=== PATIENT | female | born 1960 | race Caucasian/White ===

== ENCOUNTER 2018-11-18 20:28 | Emergency (ER) | payer SELFPAY ==
[2018-11-18 20:56] LABS: HEMATOCRIT 37.3 % (36.0-47.0); HEMOGLOBIN 12.4 g/dL (12.0-15.5); RED BLOOD COUNT 4.11 x10^6/uL (3.50-5.40); RED CELL DISTRIBUTION WIDTH 16.4 % (11.5-14.5)
[2018-11-18 21:04] LABS: CALCIUM 9.6 mg/dL (8.5-10.1); CREATININE 1.2 mg/dL (0.6-1.0); GFR 45.8
--- NOTE | 2018-11-18 21:12 | PHYS DOC ---
Adult General Chief Complaint Chief Complaint: ALTERED MENTAL STATUS HPI HPI 58-year-old female presents with concern for stroke. The patient developed weakness on the left side as well as slurred speech yesterday evening. The patient refused to come emergency room. Today, the patient states that she fell in her bedroom and hit the right side of her head. Family was concerned that her condition was getting worse and called EMS. EMS found the patient have slurred speech and weakness on the left side. She is moving all extremities. Patient's last known well time was yesterday evening. The patient is able to answer some questions. Most of her speech is intelligible. She does repeat herself. She complains of pain in the right side of her head. She is unable to tell me if she is feeling ill prior to today. She is unable to tell us about her medical history. Review of Systems Review of Systems Constitutional: Denies fever or chills [] Eyes: Denies change in visual acuity, redness, or eye pain [] HENT: Denies nasal congestion or sore throat [] Respiratory: Denies cough or shortness of breath [] Cardiovascular: No additional information not addressed in HPI [] GI: Denies abdominal pain, nausea, vomiting, bloody stools or diarrhea [] : Denies dysuria or hematuria [] Musculoskeletal: Denies back pain or joint pain [] Integument: Denies rash or skin lesions [] Neurologic: headache, new weakness. [] Endocrine: Denies polyuria or polydipsia [] All other systems were reviewed and found to be within normal limits, except as documented in this note. Physical Exam Physical Exam Constitutional: Well developed, well nourished, no acute distress, non-toxic appearance. [] HENT: Normocephalic, atraumatic, bilateral external ears normal, oropharynx moist, no oral exudates, nose normal. [] Eyes: PERRLA, EOMI, conjunctiva normal, no discharge. [] Neck: Normal range of motion, no tenderness, supple, no stridor. [] Cardiovascular:Heart rate regular rhythm, no murmur [] Lungs & Thorax: Bilateral breath sounds clear to auscultation [] Abdomen: Bowel sounds normal, soft, no tenderness, no masses, no pulsatile masses. [] Skin: Warm, dry, no erythema, no rash. [] Back: Ecchymosis right posterior ribs. [] Extremities: No tenderness, no cyanosis, no clubbing, ROM intact, no edema. [] Neurologic: Alert and oriented to person and time, moves all extemities, see NIH scale for more details [] Psychologic: Anxious [] Current Patient Data Lab Results Laboratory Tests Test 11/18/18 20:37 White Blood Count 7.0 x10^3/uL (4.0-11.0) Red Blood Count 4.11 x10^6/uL (3.50-5.40) Hemoglobin 12.4 g/dL (12.0-15.5) Hematocrit 37.3 % (36.0-47.0) Mean Corpuscular Volume 91 fL (79-100) Mean Corpuscular Hemoglobin 30 pg (25-35) Mean Corpuscular Hemoglobin Concent 33 g/dL (31-37) Red Cell Distribution Width 16.4 % (11.5-14.5) H Platelet Count 340 x10^3/uL (140-400) Sodium Level 143 mmol/L (136-145) Potassium Level 4.0 mmol/L (3.5-5.1) Chloride Level 102 mmol/L (98-107) Carbon Dioxide Level 33 mmol/L (21-32) H Anion Gap 8 (6-14) Blood Urea Nitrogen 8 mg/dL (7-20) Creatinine 1.2 mg/dL (0.6-1.0) H Estimated GFR (Cockcroft-Gault) 45.8 Glucose Level 92 mg/dL (70-99) Calcium Level 9.6 mg/dL (8.5-10.1) EKG EKG Sinus rhythm, rate 82, normal axis, no ST elevation or depression.[] Radiology/Procedures Radiology/Procedures [] Impressions: PQRS Compliance statement: One or more of the following individualized dose reduction techniques were utilized for this examination: 1. Automated exposure control. 2. Adjustment of the mA and/or kV according to patient size. 3. Use of iterative reconstruction technique. Indication:Stroke possible, slurred speech, weakness, altered mental status TECHNIQUE: CT angiogram of the head and neck with IV contrast with multiplanar MIP reformats. 3-D volume rendered postprocessing was performed. Calculation of stenosis was performed using NASCET like criteria. COMPARISON: None FINDINGS: The A1 and A2 segments of the bilateral UNIQUE are patent. The M1, M2, M3 segments of the bilateral MCA are patent. Basilar artery is patent. Bilateral P1, P2, P3 segments of the [employer] are patent. Bilateral superior cerebellar arteries are patent. Right AICA is visualized. Left AICA not visualized likely hypoplastic. Bilateral PICA are visualized and are patent. Bilateral vertebral arteries are patent. Bilateral common carotid arteries are patent. Bilateral ECA and extracranial ICA are patent. Bilateral petrous and cavernous segments of the ICA are patent. Bilateral orbits within normal limits. The major dural venous sinuses are patent. The nasopharynx, oropharynx and hypopharynx within normal limits. The submandibular glands, parotid glands and thyroid are within normal limits. No large deep cervical adenopathy. No suspicious bony lesion. Visualized paranasal sinuses and mastoid air cells are clear. Multilevel degenerative disc disease in the cervical spine. IMPRESSION: The major intracranial and neck arteries are patent. Electronically signed by: Adriel Bo DO (11/18/2018 10:50 PM) [facility] DICTATED AND SIGNED BY: ADRIEL BO DO DATE: 11/18/182241 CC: EULOGIO BHAGAT DO; PCP,UNKNOWN PQRS Compliance statement: One or more of the following individualized dose reduction techniques were utilized for this examination: 1. Automated exposure control. 2. Adjustment of the mA and/or kV according to patient size. 3. Use of iterative reconstruction technique. Indication:Slurred speech, altered mental status, fall TECHNIQUE: CT head without IV contrast COMPARISON:12/13/2010 FINDINGS: No pathologic extra-axial or intra-axial fluid collection. The ventricles and basal cisterns are within normal limits. No acute intracranial bleed. No focal loss of venegas-white differentiation. Orbits are within normal limits. No suspicious calvarial lesion. Visualized paranasal sinuses and mastoid air cells are clear. IMPRESSION: No acute intracranial process. If concern for acute ischemic stroke is high, please consider MRI brain. Critical findings were identified on 11/18/2018 9:03 PM, read back and verified with Dr. Bhagat on 11/18/2018 9:[address] Adriel Bo DO. Indication:Slurred speech, altered menatl status, fall TECHNIQUE: CT of the cervical spine without IV contrast with multiplanar reformats. COMPARISON:None FINDINGS: Motion artifact is seen in the upper cervical spine limiting optimal evaluation. Atlantoaxial joint interval is preserved. No apparent compression deformity. Facet joints are in normal anatomic alignment. Multilevel intervertebral disc space narrowing with endplate sclerosis and osteophyte formation. No apparent acute fractures. Noncontrast appearance of the neck soft tissue is within normal limits. IMPRESSION: Motion artifact limits optimal evaluation. 1. No apparent compression deformity or acute fracture. 2. Multilevel moderate degenerative disc disease associated facet arthropathy. Electronically signed by: Adriel Bo DO (11/18/2018 9:09 PM) [facility] DICTATED AND SIGNED BY: ADRIEL BO DO DATE: 11/18/182102 CC: EULOGIO BHAGAT DO; PCP,UNKNOWN Course & Med Decision Making Course & Med Decision Making Pertinent Labs and Imaging studies reviewed. (See chart for details) The patient has an NIH stroke scale of 8. Patient's head CT is negative. Her labs are unremarkable. Drug screen did show barbiturates. We are unable to obtain medication list for the patient. CT angiogram of the head and neck has been ordered. EKG is unremarkable. The patient's CT of the head and neck shows all major vessels to be patent. See official report for more details. I have discussed the patient with Dr. Coon, neurology at [facility]. She recommended admission to [place] if the CTA was negative otherwise [facility]. The CTA is negative. I discussed the case with Dr. Ortega, hospitalist at [facility] and he has accepted the patient for transfer and admission. Greater than 35 minutes of critical care time was spent on this patient exclusive of other billable procedures. [] Dragon Disclaimer Dragon Disclaimer This electronic medical record was generated, in whole or in part, using a voice recognition dictation system. NIH Stroke Scale: NIH Stroke Scale Response (Comments) Value Level of Consciousness: 0 Alert/Responsive 0 LOC Questions: 0 Answers both correctly 0 LOC Commands: 0 Performs both tasks 0 Best Gaze: 0 Normal 0 Visual: 0 No visual loss 0 Facial Palsy: 0 Normal, symmetrical 0 Motor - Left Arm 1 Drifts, but can hold 1 Motor - Right Arm 1 Drifts but can hold 1 Motor - Left Leg 1 Drift but can hold 1 Motor: Right Leg 1 Drift but can hold 1 Limb Ataxia: 2 Two limbs 2 Sensory: 0 No loss 0 Best Language: 1 Mild to mod aphasia 1 Dysathria: 1 Mild to moderate 1 Extinction and Inattention: 0 Normal 0 Total 8 Departure Departure: Impression: Primary Impression: Stroke Additional Impressions: Fall from standing Altered mental status Headache Disposition: XFER SHT-TRM HOSP Condition: STABLE Problem Qualifiers Primary Impression: Stroke CVA mechanism: unspecified Qualified Codes: I63.9 - Cerebral infarction, unspecified Additional Impressions: Fall from standing Encounter type: initial encounter Qualified Codes: W19.XXXA - Unspecified fall, initial encounter Altered mental status Altered mental status type: disorientation Qualified Codes: R41.0 - Disorientation, unspecified Headache Headache type: unspecified Headache chronicity pattern: acute headache Intractability: intractable Qualified Codes: R51 - Headache EULOGIO BHAGAT DO Nov 18, 2018 21:12
[2018-11-18] MEDS ORDERED: IOHEXOL 350 MG/ML 100 ML VIAL. IV ONE (21:30)
[2018-11-18 21:54] LABS: BACTERIA,URINE 0 /HPF (0-FEW); BILIRUBIN,URINE NEG (NEG); CLARITY,URINE CLEAR; COLOR,URINE YELLOW; GLUCOSE,URINE NEG (NEG); NITRITE,URINE NEG (NEG); RBC,URINE 0 /HPF (0-2); SQUAMOUS EPITHELIAL CELL,UR FEW /LPF; UROBILINOGEN,URINE 0.2 mg/dL (0.2 mg/dL); WBC,URINE 0 /HPF (0-4)
[2018-11-18 21:55] LABS: HYALINE CASTS, URINE FEW /HPF
[2018-11-18 21:57] LABS: AMPHETAMINE/METHAMPHETAMINE NEG (NEG); BARBITURATES POS (NEG); BENZODIAZEPINES NEG (NEG); CANNABINOIDS NEG (NEG); COCAINE NEG (NEG); METHADONE NEG (NEG); OPIATES NEG (NEG); PHENCYCLIDINE NEG (NEG)
--- NOTE | 2018-11-18 22:52 | RAD ---
PQRS Compliance statement: One or more of the following individualized dose reduction techniques were utilized for this examination: 1. Automated exposure control. 2. Adjustment of the mA and/or kV according to patient size. 3. Use of iterative reconstruction technique. Indication:Stroke possible, slurred speech, weakness, altered mental status TECHNIQUE: CT angiogram of the head and neck with IV contrast with multiplanar MIP reformats. 3-D volume rendered postprocessing was performed. Calculation of stenosis was performed using NASCET like criteria. COMPARISON: None FINDINGS: The A1 and A2 segments of the bilateral UNIQUE are patent. The M1, M2, M3 segments of the bilateral MCA are patent. Basilar artery is patent. Bilateral P1, P2, P3 segments of the [employer] DELIV[employer]NAGER are patent. Bilateral superior cerebellar arteries are patent. Right AICA is visualized. Left AICA not visualized likely hypoplastic. Bilateral PICA are visualized and are patent. Bilateral vertebral arteries are patent. Bilateral common carotid arteries are patent. Bilateral ECA and extracranial ICA are patent. Bilateral petrous and cavernous segments of the ICA are patent. Bilateral orbits within normal limits. The major dural venous sinuses are patent. The nasopharynx, oropharynx and hypopharynx within normal limits. The submandibular glands, parotid glands and thyroid are within normal limits. No large deep cervical adenopathy. No suspicious bony lesion. Visualized paranasal sinuses and mastoid air cells are clear. Multilevel degenerative disc disease in the cervical spine. IMPRESSION: The major intracranial and neck arteries are patent. Electronically signed by: Adriel Bo DO (11/18/2018 10:50 PM) [facility]
--- NOTE | 2018-11-18 23:35 | RAD ---
EXAM: AP View of the chest DATE: 11/18/2018 9:35 PM INDICATION: Bruising right posterior ribs, weakness, recent fall COMPARISON: No Prior FINDINGS: The heart is borderline enlarged. Bilateral infrahilar and lung base parenchymal opacities are seen with linear opacities in the midlungs bilaterally. No pleural effusion or pneumothorax. IMPRESSION: Bilateral infrahilar and lung base opacities, possibly atelectasis although early developing consolidation is not excluded. Given the interstitial prominence, early interstitial edema may have similar appearance. Electronically signed by: Roberto Benton MD (11/18/2018 11:32 PM) [facility] [place]
[2018-11-18 23:52] VITALS: BP 159/81
--- NOTE | 2018-11-19 21:40 | EKG ---
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
== END 2018-11-19 00:17 | disposition short-term general hospital (02) ==
LOC: ER 20:28
DX: I63.9 Cerebral infarction, unspecified (principal); R53.1 Weakness; R47.81 Slurred speech; R41.82 Altered mental status, unspecified; R51 Headache; G89.11 Acute pain due to trauma; W18.09XA Striking against other object with subsequent fall, initial encounter; Y93.89 Activity, other specified; Y92.89 Other specified places as the place of occurrence of the external cause; Y99.8 Other external cause status
CPT/HCPCS: 36415; 70450; 70496; 70498; 71045; 72125; 80048; 80307; 81001; 82947; 84484; 85027; 85610; 85730; 93005; 96374; 99285; J2060; Q9967

== ENCOUNTER 2019-02-17 10:13 | Emergency (ER) | payer SELFPAY ==
[~2019-02-17] VITALS: Ht 165.1 cm; Wt 93.7 kg
--- NOTE | 2019-02-17 10:47 | PHYS DOC ---
Past History Past Medical History: Other Past Surgical History: Other Adult General Chief Complaint Chief Complaint: PSYCH EVALUATION HPI HPI 58-year-old female presents with depression and suicidal ideation. The patient tells me that she has been very depressed for the last few months because her mother is not doing well. She has been admitted to a behavioral health facility and her health is declining. Makes the patient very depressed. She does not have friends. She does not have a job. She is now feeling lost. She has had suicidal thoughts. She had a suicide attempt by overdose a few months ago. No recent attempts. She has thought about pain herself. She is very tearful throughout our interview. The patient has a history of drug use throughout her life. She denies any recent drug use. She denies alcohol consumption. She denies fever or chills Review of Systems Review of Systems Constitutional: Denies fever or chills [] Eyes: Denies change in visual acuity, redness, or eye pain [] HENT: Denies nasal congestion or sore throat [] Respiratory: Denies cough or shortness of breath [] Cardiovascular: No additional information not addressed in HPI [] GI: Denies abdominal pain, nausea, vomiting, bloody stools or diarrhea [] : Denies dysuria or hematuria [] Musculoskeletal: Denies back pain or joint pain [] Integument: Denies rash or skin lesions [] Neurologic: Denies headache, focal weakness or sensory changes [] Endocrine: Denies polyuria or polydipsia [] All other systems were reviewed and found to be within normal limits, except as documented in this note. Allergies Allergies Allergies Coded Allergies Type Severity Reaction Last Updated Verified No Known Drug Allergies 11/18/18 No Physical Exam Physical Exam Constitutional: Well developed, well nourished, no acute distress, non-toxic appearance. [] HENT: Normocephalic, atraumatic, bilateral external ears normal, oropharynx moist, no oral exudates, nose normal. [] Eyes: PERRLA, EOMI, conjunctiva normal, no discharge. [] Neck: Normal range of motion, no tenderness, supple, no stridor. [] Cardiovascular:Heart rate regular rhythm, no murmur [] Lungs & Thorax: Bilateral breath sounds clear to auscultation [] Abdomen: Bowel sounds normal, soft, no tenderness, no masses, no pulsatile masses. [] Skin: Warm, dry, no erythema, no rash. [] Back: No tenderness, no CVA tenderness. [] Extremities: No tenderness, no cyanosis, no clubbing, ROM intact, no edema. [] Neurologic: Alert and oriented X 3, normal motor function, normal sensory function, no focal deficits noted. [] Psychologic: Affect flat, judgement impaired, mood depressed, tearful. [] Current Patient Data Vital Signs Vital Signs Date Time Temp Pulse Resp B/P (MAP) Pulse Ox O2 Delivery O2 Flow Rate FiO2 02/17/19 10:22 67 18 147/94 (111) 99 Room Air EKG EKG Sinus rhythm, rate 62, normal axis, no ST elevations or depressions.[] Radiology/Procedures Radiology/Procedures [] Course & Med Decision Making Course & Med Decision Making Pertinent Labs and Imaging studies reviewed. (See chart for details) The patient's labs are unremarkable. She does of slightly low potassium. We will give her some oral placement. This does not preclude her from psychiatric evaluation or admission. Her urine drug screen was positive for barbiturates, but nothing else. Psychiatric evaluation is pending. The psychiatric evaluation has recommended inpatient placement. We are working on placement. [facility] She will be transferred by ambulance. [] Dragon Disclaimer Dragon Disclaimer This electronic medical record was generated, in whole or in part, using a voice recognition dictation system. Departure Departure: Impression: Primary Impression: Suicidal ideation Additional Impression: Depression Disposition: XFER SHT-TRM HOSP Condition: STABLE Referrals: PCP,UNKNOWN (PCP) Problem Qualifiers Additional Impression: Depression Depression Type: major depressive disorder Major depression recurrence: recurrent Active/Remission status: currently active Major depression episode severity: severe Psychotic features: without psychotic features Qualified Codes: F33.2 - Major depressive disorder, recurrent severe without psychotic features EULOGIO BHAGAT DO February 17, 2019 10:47
[2019-02-17 11:04] LABS: BASO # 0.1 x10^3/uL (0.0-0.2); BASO % 1 % (0-3); EOS # 0.1 x10^3/uL (0.0-0.7); EOS % 2 % (0-3); HEMATOCRIT 37.6 % (36.0-47.0); HEMOGLOBIN 12.5 g/dL (12.0-15.5); LYMPH # 1.8 x10^3/uL (1.0-4.8); LYMPH % 33 % (24-48); MEAN CORPUSCULAR HEMOGLOBIN 29 pg (25-35); MEAN CORPUSCULAR HGB CONC 33 g/dL (31-37); MEAN CORPUSCULAR VOLUME 88 fL (79-100); MONO # 0.4 x10^3/uL (0.0-1.1); MONO % 8 % (0-9); NEUT # 3.2 x10^3uL (1.8-7.7); NEUT % 57 % (31-73); PLATELET COUNT 322 x10^3/uL (140-400); RED BLOOD COUNT 4.26 x10^6/uL (3.50-5.40); RED CELL DISTRIBUTION WIDTH 17.3 % (11.5-14.5); WHITE BLOOD COUNT 5.6 x10^3/uL (4.0-11.0)
[2019-02-17 11:12] LABS: ALBUMIN 3.9 g/dL (3.4-5.0); ALBUMIN/GLOBULIN RATIO 1.1 (1.0-1.7); CALCIUM 9.5 mg/dL (8.5-10.1); CREATININE 0.8 mg/dL (0.6-1.0); GFR 73.2; POTASSIUM 3.2 mmol/L (3.5-5.1); TOTAL BILIRUBIN 0.5 mg/dL (0.2-1.0); TOTAL PROTEIN 7.6 g/dL (6.4-8.2)
[2019-02-17 12:17] LABS: AMPHETAMINE/METHAMPHETAMINE NEG (NEG); BARBITURATES POS (NEG); BENZODIAZEPINES NEG (NEG); CANNABINOIDS NEG (NEG); COCAINE NEG (NEG); METHADONE NEG (NEG); OPIATES NEG (NEG); PHENCYCLIDINE NEG (NEG)
[2019-02-17 12:29] LABS: BILIRUBIN,URINE NEG (NEG); CLARITY,URINE CLEAR; COLOR,URINE AMBER; GLUCOSE,URINE NEG (NEG)
[2019-02-17 12:30] LABS: BACTERIA,URINE 0 /HPF (0-FEW); NITRITE,URINE NEG (NEG); RBC,URINE 0 /HPF (0-2); SQUAMOUS EPITHELIAL CELL,UR FEW /LPF; UROBILINOGEN,URINE 0.2 mg/dL (0.2 mg/dL); WBC,URINE 0 /HPF (0-4)
[2019-02-17] MEDS ORDERED: POTASSIUM CHLORIDE 20 MEQ TABLET.ER. PO ONE (12:45)
--- NOTE | 2019-02-17 15:46 | EKG ---
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
[2019-02-17 16:00] VITALS: BP 142/91
== END 2019-02-17 17:50 | disposition short-term general hospital (02) ==
LOC: ER 10:13
DX: F33.2 Major depressive disorder, recurrent severe without psychotic features (principal); F19.10 Other psychoactive substance abuse, uncomplicated; Z91.5 Personal history of self-harm
CPT/HCPCS: 36415; 80053; 80307; 81001; 85025; 93005; 99285